=== PATIENT | male | born 1940 | race Caucasian/White ===

== ENCOUNTER → 2020-09-21 | Outpatient (CLI) | payer MEDICARE | LOC: COL.RAD 10:01 | DX: K40.90 Unilateral inguinal hernia, without obstruction or gangrene, not specified as recurrent (principal); N32.89 Other specified disorders of bladder ==

== ENCOUNTER 2020-11-05 13:06 | Day surgery (SDC) | payer MEDICARE ==
[~2020-11-05] VITALS: Ht 167.6 cm; Wt 73.0 kg
[2020-11-05 13:52] VITALS: BP 129/89; PULSE 69; TEMP 97.8
[2020-11-05] MEDS ORDERED: ZOCOR 20MG20 MG PO (14:01)
[2020-11-05] MEDS ORDERED: ONE-A-DAY ESSE1 EACH PO (14:02)
[2020-11-05] MEDS ORDERED: OSCAL 500 TAB500 MG PO (14:02)
[2020-11-05] MEDS ORDERED: COZAAR100 MG PO (14:02)
[2020-11-05] MEDS ORDERED: CLARITIN 1010 MG/TAB PO (14:03)
--- NOTE | 2020-11-05 14:07 | NUR ---
TO RM 1 AT 1324- CALL LIGHT IN REACH WILL GUIDE PLANT PATIENT AT TIME OF DISCHARGE
--- NOTE | 2020-11-05 14:52 | NUR ---
PATIENT SLEEPING QUIETLY
[2020-11-05 16:45] VITALS: BP 154/75; PULSE 56
[2020-11-05 16:50] VITALS: TEMP 97.6
[2020-11-05 17:00] VITALS: BP 172/85; PULSE 66
--- NOTE | 2020-11-05 17:12 | NUR ---
PT TOLERATING PUDDING, ICE CREAM, KATY CRACKERS AND ORANGE JUICE. DENIES NAUSEA AT THIS TIME, WILL CONT TO MONITOR.
--- NOTE | 2020-11-05 17:15 | NUR ---
PT STANDING AT BEDSIDE,STATED, 'I JUST WANTED TO SEE IF I COULD STAND UP'. PT IS ALERT AND ORIENTATED TO SELF AND SURROUNDINGS. PT STATES HIS PAIN/DISCOMFORT IS RATED AT A 7 ON A 0-[address] DAO NOTIFIED.WILL CONT TO MONITOR.
[2020-11-05 17:35] VITALS: BP 179/98; PULSE 70
--- NOTE | 2020-11-05 17:45 | NUR ---
PT UP TO VOID, VOIDED BLOOD TINGED URINE, MORE YELLOW IN COLOR THAT BLOOD TINGED. PT WAS GIVEN PAIN MED AND FLOMAX FOR BLADDER SPASMS. IV WAS DC'D TO LEFT WRIST. PT TOLERATED WELL. DISMISSAL INSTRUCTIONS GIVEN AND EXPLAINED TO PT. PT SIGNED AND DENIED QUESTIONS. PT WAS TAKEN TO ER ENTRANCE PER WC AND DISCHARGED TO FAMILY VEHICLE. PT DRIVING.
== END 2020-11-05 17:45 | disposition home or self-care (01) ==
LOC: SDCO
DX: C67.9 Malignant neoplasm of bladder, unspecified (principal); K40.90 Unilateral inguinal hernia, without obstruction or gangrene, not specified as recurrent; E78.2 Mixed hyperlipidemia; I10 Essential (primary) hypertension; Z20.822 Contact with and (suspected) exposure to COVID-19; Z86.010 Personal history of colon polyps; Z79.899 Other long term (current) drug therapy; Z87.891 Personal history of nicotine dependence
CPT/HCPCS: C1769; J0690; J1100; J2405; J2704; J3010; J7120; Q9967

== ENCOUNTER 2023-07-27 12:27 | Inpatient (IN) | payer MEDICARE ==
[2023-07-27] VITALS (294 sets, daily range): BP systolic 102–166; BP diastolic 56–95; PULSE 58–177; TEMP 97.3–98.3; O2SAT 86–95
[~2023-07-27] VITALS: Ht 167.6 cm; Wt 74.3 kg
[~2023-07-27 12:27] MED LIST: ASPIRIN E.C. 8181 MG PO; CLARITIN 1010 MG/TAB PO; COZAAR100 MG PO; FLOMAX 0.40.4 MG/CAP PO; ONE-A-DAY ESSE1 EACH PO; OSCAL 500 TAB500 MG PO; ZOCOR 20MG20 MG PO
[2023-07-27] MEDS ORDERED: TOPROL XL 50MG50 MG PO (13:29)
[2023-07-27] MEDS ORDERED: ELIQUIS 5MG PO (13:33)
[2023-07-27] MEDS ORDERED: LUPRON DEPOT45 MG IM (13:35)
--- NOTE | 2023-07-27 15:55 | NUR ---
PATIENT RETURNS TO ROOM 6 PER CART FROM PACU ACCOMPANIED BY DREAD HUSTON AND IS AWAKE AND ALERT. TAKING SIPS OF WATER AND ICE CHIPS. AV FISTULA ON RW NOTED WITH THRILL NOTED. WOUND EDGES WELL APPROXIMATED. DAUGHTER IN ROOM. SIDERAILS UP X2 AND CALL LIGHT IN REACH. C/O BEING HUNGRY AND GIVEN MUFFIN TO EAT.
--- NOTE | 2023-07-27 16:10 | NUR ---
TOLERATES SNACK. IV INUFSING AT TKO. STIE FREE OF REDNESS. DAUGHTER REMAINS IN THE ROOM. EDUCATED ON FEELING THE THRILL ON AV FISTULA SITE.
--- NOTE | 2023-07-27 16:25 | NUR ---
STATES HE IS READY TO GO HOME. ALERT AND DENIES ANY DISCOMFORT FOR RIGHT AV FISTULA SITE.
--- NOTE | 2023-07-27 16:30 | NUR ---
IV DISCONTINUED AND SITE IS FREE OF REDNESS. ASSISTED TO EDGE OF BED AND TOLERATES ACTIVITY. ASSISTED WITH DRESSING. CONTINUE TO BE ABLE TO PALPATE THRILL OF AV FISTULA SITE. PATIENT ALSO EDUCATED ON CHECKING THIS DAILY AND OBSERVING THE SITE FOR S/S OF POST OP INFECTION. PROVIDED HANDOUT TEACHING SHEET FOR REMINDER OF LIMITATION OF THE RIGHT ARM.
--- NOTE | 2023-07-27 16:40 | NUR ---
DISMISSAL INSTRUCTIONS SIGNED AND BOTH PATIENT AND DAUGTHER VOICE UNDERSTANDING OF THESE.
--- NOTE | 2023-07-27 16:44 | NUR ---
PATIENT DISMISSED TO HOME PER PRIVATE VEHICLE DRIVEN BY DAUGHTER. WAS ESCORTED TO CAR PER WHEELCHAIR AND DISMISSED WITH INSTRUCTIONS IN HAND. PROVIDED OFFICE NUMBER FOR ANY QUESTIONS OR CONCERNS.
--- NOTE | 2023-07-27 17:45 | NUR ---
Pt arrives to ICU 6 from PACU at this time. Pt coming to ICU due to AFIB RVR. Heart rate AFIB in the 150's-160's upon arrival. Pt alert and oriented. CBI running with light pink urine to dependent drainage. Pt's Tatyana present. Pt oriented to room and instructed to call for assistance. MILA Quiñones at the bedside. Cardizem bolus to be given once verified by pharmacy. Cardizem gtt to be started if bolus does not decrease rate and keep it within normal range.
[2023-07-27 17:51] LABS: ALANINE AMINOTRANSFERASE 42 U/L (0-55); ALBUMIN 3.2 gm/dL (3.4-4.8); ALKALINE PHOSPHATASE 74 U/L (40-150); ANION GAP 11 mmol/L (7-16); AST,SGOT 36 U/L (5-34); BILIRUBIN,TOTAL 0.8 mg/dL (0.2-1.2); BLOOD UREA NITROGEN 17 mg/dL (8-26); CALCIUM 7.8 mg/dL (8.4-10.2); CARBON DIOXIDE 18 mmol/L (23-31); CHLORIDE 110 mmol/L (98-107); CREATININE, serum 1.02 mg/dL (0.72-1.25); GLUCOSE 103 mg/dL (70-99); MAGNESIUM 1.5 mg/dL (1.6-2.6); POTASSIUM 4.5 mmol/L (3.5-4.5); SODIUM 139 mmol/L (136-145); TOTAL PROTEIN 6.4 gm/dL (6.2-8.1)
[2023-07-27 18:07] LABS: HEMATOCRIT 41.3 % (42.0-52.0); HEMOGLOBIN 14.2 g/dl (13.5-18.0); MEAN CELL VOLUME 88 fl (80.0-100.0); MEAN CORPUSCULAR HEMOGLOBIN 30 pg (27-31); MEAN CORPUSCULAR HGB CONC 34 g/dl (33.0-37.0); MEAN PLATELET VOLUME 11.6 fl (7.4-10.4); PLATELET COUNT 132 K/mm3 (130-400); RED BLOOD COUNT 4.68 M/mm3 (4.20-5.60); REDCELL DISTRIBUTION WIDTH-CV 12.5 % (11.5-14.5)
[2023-07-27 18:11] LABS: THYROID STIMULATING HORMONE 2.839 uIU/mL (0.350-4.940); TROPONIN-I < 0.010 ng/mL (0.00-0.033)
[2023-07-27 18:21] LABS: BAND 23 % (0-10); EOSINOPHIL 1 % (0-4); LYMPHOCYTE 11 % (20.0-51.0); NEUTROPHILS 63 % (42.0-75.2); PLATELET ESTIMATE NORMAL (NORMAL)
[2023-07-28] VITALS (613 sets, daily range): BP systolic 93–108; BP diastolic 45–74; PULSE 55–85; TEMP 97.8–98.4; O2SAT 85–96
--- NOTE | 2023-07-28 14:25 | NUR ---
tray line worker met with patient to discuss discharge planning. Patient states that the lives with his spouse, Tatyana #[phone] and plans to return home today. Patient states that he and spouse are independent with their activities of daily living and he denies concerns for unmet needs. Patient states Dr Diaz is his primary care provider and that he has completed advance directives. Discharge plan: home with spouse.
--- NOTE | 2023-07-28 14:41 | NUR ---
1400 DISCHARGE INSTRUCTIONS REVIEWED WITH PT AND PT . PT UNDERSTANDS INSTRUCTIONS. RESTART ELIQUIS 07/31/23. UROLOGY OFFICE TO CALL FOR KNIGHT REMOVAL NEXT WEEK. 08/09/23 FOLLOW UP APPT WITH UROLOGY. KEEP SCHEDULED CARDIOLOGY APPT WITH PRIMARY TOWBOAT ENGINEER IN AUGUST. 1430 PT TAKEN OUT IN WHEELCHAIR.
== END 2023-07-28 14:30 | disposition home or self-care (01) | DRG 714 ==
LOC: SDCO 12:27 → ICU 17:45 → SDCO 18:35 → ICU 18:36
PROVIDERS: Nurse Practitioner; ADMIT Urology
PROC: 0VT08ZZ Resection of Prostate, Via Natural or Artificial Opening Endoscopic (ICD-10-PCS; principal; 2023-07-27 15:15)
DX: C61 Malignant neoplasm of prostate (principal); R33.9 Retention of urine, unspecified
CPT/HCPCS: J0690; J1100; J1805; J2270; J2405; J2704; J3010; J3475; J7120

== ENCOUNTER 2024-06-20 10:33 | Emergency (ER) | payer MEDICARE ==
[~2024-06-20] VITALS: Ht 167.6 cm; Wt 70.5 kg
[~2024-06-20 10:33] MED LIST changes: +ELIQUIS 5MG PO; +LUPRON DEPOT45 MG IM; +TOPROL XL 50MG50 MG PO
[2024-06-20] MEDS ORDERED: Tdap Vaccine 0.5 ML SYRINGE IM ONE (12:45)
[2024-06-20 13:53] VITALS: BP 125/80; PULSE 90; TEMP 97.5
== END 2024-06-20 13:54 | disposition home or self-care (01) ==
LOC: COL.ER 10:33
DX: S61.212A Laceration without foreign body of right middle finger without damage to nail, initial encounter (principal); W18.41XA Slipping, tripping and stumbling without falling due to stepping on object, initial encounter; Y93.01 Activity, walking, marching and hiking